=== PATIENT | male | born 1955 | race Caucasian/White ===

== ENCOUNTER 2022-09-30 14:08 | Inpatient (IN) | payer MEDICARE ==
[~2022-09-30] VITALS: Ht 177.8 cm; Wt 111.6 kg
[2022-09-30] MEDS ORDERED: SODIUM CHLORIDE 0.9% 1000ML 1,000 ML IV STA (14:44)
[2022-09-30] MEDS ORDERED: Vancomycin IV 1 GM in SODIUM CHLORIDE 0.9% 250ML 250 ML IV ONE (14:45)
[2022-09-30 14:51] LABS: BASOPHILS % 0.3 % (0.0-1.0); EOSINOPHILS # (AUTO) 0.1 (0.0-0.4); EOSINOPHILS % 0.4 % (0.0-6.0); HEMATOCRIT 39.7 % (38.2-49.6); HEMOGLOBIN 13.1 g/dL (14.0-18.0); LYMPHOCYTES # (AUTO) 1.1 (1.0-3.2); LYMPHOCYTES % 8.3 % (18.0-39.1); MEAN CORPUSCULAR HEMOGLOBIN 31.6 pg (28-32); MEAN CORPUSCULAR VOLUME 95.7 fL (81-99); MONOCYTES # (AUTO) 1.1 (0.2-0.8); MONOCYTES % 7.9 % (4.4-11.3); NEUTROPHILS % 82.6 % (38.7-80.0); PLATELET COUNT 331 x10e3/uL (140-360); RED BLOOD COUNT 4.15 x10e6/uL (4.3-5.7); RED CELL DISTRIBUTION WIDTH 12.7 % (11.7-14.4)
[2022-09-30 14:59] LABS: INR 1.94; PROTHROMBIN TIME 23.7 seconds (11.9-14.5)
[2022-09-30 15:00] LABS: PARTIAL THROMBOPLASTIN TIME 52.8 seconds (23.8-35.5)
[2022-09-30] MEDS ORDERED: SODIUM CHLORIDE 0.9% 1000ML 1,000 ML ONE (15:00)
[2022-09-30 15:07] LABS: ALBUMIN 3.4 g/dL (3.5-5.0); ALBUMIN/GLOBULIN RATIO 0.8 (0.8-2.0); ANION GAP 13.9 mmol/L (8-16); CALCIUM 9.3 mg/dL (8.4-10.2); CREATININE, SERUM 1.19 mg/dL (0.72-1.25); POTASSIUM 3.9 mmol/L (3.5-5.1)
[2022-09-30 15:14] LABS: CREATINE KINASE MB 1.2 ng/mL (0-5.0)
[2022-09-30] MEDS ORDERED: ONDANSETRON HCL INJ 2MG/ML 2ML 2 MG/ML VIAL IV PRN (15:45)
[2022-09-30] MEDS ORDERED: Morphine 4mg INJECTION 4 MG/ML INJ IV PRN (15:45)
[2022-09-30] MEDS ORDERED: DEXTROSE 50% SYRINGE 50 ML IV PRN (15:45)
[2022-09-30] MEDS: FAMOTIDINE 20 MG/2 ML VIAL IV SCH ×2 (16:24→22:15)
[2022-09-30] MEDS ORDERED: ACETAMINOPHEN 325 MG TAB PO ONE (16:30)
[2022-09-30] MEDS: INSULIN LISPRO 100 UNIT/1 ML 3ML VIAL SQ SCH ×2 (16:30→21:00)
[2022-09-30 16:51] VITALS: BP 145/76
[2022-09-30 17:44] VITALS: BP 145/76
[2022-09-30 17:46] VITALS: BP 145/76
[2022-09-30] MEDS ORDERED: HYDROCHLOROTHIA25 MG PO (18:38)
[2022-09-30] MEDS ORDERED: FENOFIBRATE160 MG PO (18:38)
[2022-09-30] MEDS ORDERED: GABAPENTIN300 MG PO (18:38)
[2022-09-30] MEDS ORDERED: WARFARIN SODIUM5 MG PO ×2 (18:38)
[2022-09-30] MEDS ORDERED: ZETIA10 MG PO (18:38)
[2022-09-30] MEDS ORDERED: AMBIEN10 MG PO (18:38)
[2022-09-30] MEDS ORDERED: LOSARTAN POTASS25 MG PO (18:38)
[2022-09-30] MEDS ORDERED: AMLODIPINE BESY10 MG PO (18:38)
[2022-09-30] MEDS ORDERED: METFORMIN HCL500 M1 PO (18:38)
[2022-09-30] MEDS: WARFARIN SOD 3 MG TAB PO SCH (19:26)
[2022-09-30] MEDS: WARFARIN SOD 5 MG TAB PO SCH (19:26)
[2022-09-30 20:24] VITALS: BP 116/68
[2022-09-30 21:00] VITALS: BP 116/68
[2022-09-30] MEDS ORDERED: METFORMIN HCL 500 MG TAB CR PO SCH (21:00)
[2022-09-30] MEDS: GABAPENTIN 300 MG CAP PO SCH (21:39)
[2022-09-30] MEDS: ZOLPIDEM TARTRATE 10 MG TAB PO PRN (22:58)
[2022-09-30] MEDS ORDERED: ACETAMINOPHEN 325 MG TAB PO PRN (23:00)
[2022-10-01] VITALS (10 sets, daily range): BP systolic 123–148; BP diastolic 50–89
[2022-10-01] MEDS: Vancomycin IV 1 GM in SODIUM CHLORIDE 0.9% 250ML 250 ML IV SCH ×3 (03:58→17:52)
[2022-10-01 05:49] LABS: BASOPHILS # (AUTO) 0.1 (0.0-0.1); BASOPHILS % 0.5 % (0.0-1.0); EOSINOPHILS # (AUTO) 0.2 (0.0-0.4); EOSINOPHILS % 1.2 % (0.0-6.0); HEMOGLOBIN 12.1 g/dL (14.0-18.0); LYMPHOCYTES # (AUTO) 1.2 (1.0-3.2); LYMPHOCYTES % 9.2 % (18.0-39.1); MEAN CORPUSCULAR HGB CONC 33.6 g/dL (31-35); MEAN CORPUSCULAR VOLUME 95.2 fL (81-99); MONOCYTES # (AUTO) 1.1 (0.2-0.8); MONOCYTES % 8.6 % (4.4-11.3); NEUTROPHILS # (AUTO) 10.4 (2.1-6.9); NEUTROPHILS % 80.3 % (38.7-80.0); PLATELET COUNT 328 x10e3/uL (140-360); RED BLOOD COUNT 3.78 x10e6/uL (4.3-5.7); RED CELL DISTRIBUTION WIDTH 12.6 % (11.7-14.4)
[2022-10-01 06:30] LABS: ALBUMIN/GLOBULIN RATIO 0.8 (0.8-2.0); ANION GAP 13.8 mmol/L (8-16); CALCIUM 8.9 mg/dL (8.4-10.2); CHOL/HDL RATIO 5.3 (3.9-4.7); CREATININE, SERUM 1.13 mg/dL (0.72-1.25); POTASSIUM 3.8 mmol/L (3.5-5.1)
[2022-10-01 06:57] LABS: CREATINE KINASE MB 0.7 ng/mL (0-5.0)
[2022-10-01] MEDS ORDERED: WARFARIN SOD 5 MG TAB PO SCH ×2 (09:00→17:00)
[2022-10-01] MEDS: FENOFIBRATE 160 MG PO SCH (09:00)
[2022-10-01] MEDS: HYDROCHLOROTHIAZIDE 25 MG TAB PO SCH (11:00)
[2022-10-01] MEDS: AMLODIPINE BESYLATE 10 MG TAB PO SCH (11:00)
[2022-10-01] MEDS: LOSARTAN POTASSIUM 25 MG TAB PO SCH (11:00)
[2022-10-01] MEDS: EZETIMIBE 10 MG TAB PO SCH (11:01)
[2022-10-01] MEDS: INSULIN LISPRO 100 UNIT/1 ML 3ML VIAL SQ SCH ×4 (11:30→22:37)
[2022-10-01] MEDS: FAMOTIDINE 20 MG/2 ML VIAL IV SCH ×2 (11:34→20:56)
[2022-10-01 14:54] LABS: CREATINE KINASE MB 0.9 ng/mL (0-5.0)
[2022-10-01] MEDS: WARFARIN SOD 2 MG TAB PO SCH (17:14)
[2022-10-01] MEDS: WARFARIN SOD 5 MG TAB PO SCH (17:14)
[2022-10-01] MEDS: GABAPENTIN 300 MG CAP PO SCH (20:56)
[2022-10-01] MEDS: ZOLPIDEM TARTRATE 10 MG TAB PO PRN (20:57)
[2022-10-02] VITALS (10 sets, daily range): BP systolic 125–145; BP diastolic 67–89
[2022-10-02 06:00] LABS: BASOPHILS # (AUTO) 0.1 (0.0-0.1); BASOPHILS % 0.6 % (0.0-1.0); EOSINOPHILS # (AUTO) 0.3 (0.0-0.4); EOSINOPHILS % 2.4 % (0.0-6.0); HEMOGLOBIN 12.3 g/dL (14.0-18.0); LYMPHOCYTES # (AUTO) 1.7 (1.0-3.2); LYMPHOCYTES % 14.6 % (18.0-39.1); MEAN CORPUSCULAR HEMOGLOBIN 31.4 pg (28-32); MEAN CORPUSCULAR HGB CONC 34.2 g/dL (31-35); MEAN CORPUSCULAR VOLUME 91.8 fL (81-99); MONOCYTES # (AUTO) 1.3 (0.2-0.8); MONOCYTES % 11.1 % (4.4-11.3); NEUTROPHILS % 70.6 % (38.7-80.0); PLATELET COUNT 356 x10e3/uL (140-360); RED BLOOD COUNT 3.92 x10e6/uL (4.3-5.7)
[2022-10-02 06:27] LABS: CALCIUM 9.5 mg/dL (8.4-10.2); CREATININE, SERUM 1.36 mg/dL (0.72-1.25)
[2022-10-02] MEDS: Vancomycin IV 1 GM in SODIUM CHLORIDE 0.9% 250ML 250 ML IV SCH ×2 (07:08→17:43)
[2022-10-02] MEDS: AMLODIPINE BESYLATE 10 MG TAB PO SCH (08:50)
[2022-10-02] MEDS: EZETIMIBE 10 MG TAB PO SCH (08:50)
[2022-10-02] MEDS: HYDROCHLOROTHIAZIDE 25 MG TAB PO SCH (08:51)
[2022-10-02] MEDS: FAMOTIDINE 20 MG/2 ML VIAL IV SCH ×2 (08:51→20:02)
[2022-10-02] MEDS: LOSARTAN POTASSIUM 25 MG TAB PO SCH (08:51)
[2022-10-02] MEDS: FENOFIBRATE 160 MG PO SCH (09:00)
[2022-10-02] MEDS: INSULIN LISPRO 100 UNIT/1 ML 3ML VIAL SQ SCH ×4 (09:13→22:21)
[2022-10-02 11:54] LABS: INR 1.91; PROTHROMBIN TIME 23.4 seconds (11.9-14.5)
[2022-10-02] MEDS: WARFARIN SOD 5 MG TAB PO SCH (19:12)
[2022-10-02] MEDS: WARFARIN SOD 3 MG TAB PO SCH (19:12)
[2022-10-02] MEDS: GABAPENTIN 300 MG CAP PO SCH (20:02)
[2022-10-02] MEDS: ZOLPIDEM TARTRATE 10 MG TAB PO PRN (22:22)
[2022-10-03] VITALS (7 sets, daily range): BP systolic 111–132; BP diastolic 69–80
[2022-10-03] MEDS: Vancomycin IV 1 GM in SODIUM CHLORIDE 0.9% 250ML 250 ML IV SCH ×2 (04:54→17:40)
[2022-10-03 06:03] LABS: BASOPHILS # (AUTO) 0.1 (0.0-0.1); BASOPHILS % 0.9 % (0.0-1.0); EOSINOPHILS # (AUTO) 0.4 (0.0-0.4); EOSINOPHILS % 3.8 % (0.0-6.0); HEMATOCRIT 35.4 % (38.2-49.6); HEMOGLOBIN 11.9 g/dL (14.0-18.0); LYMPHOCYTES # (AUTO) 1.8 (1.0-3.2); LYMPHOCYTES % 17.4 % (18.0-39.1); MEAN CORPUSCULAR HEMOGLOBIN 30.7 pg (28-32); MEAN CORPUSCULAR HGB CONC 33.6 g/dL (31-35); MEAN CORPUSCULAR VOLUME 91.5 fL (81-99); MONOCYTES # (AUTO) 1.1 (0.2-0.8); MONOCYTES % 10.6 % (4.4-11.3); NEUTROPHILS # (AUTO) 6.9 (2.1-6.9); NEUTROPHILS % 66.2 % (38.7-80.0); PLATELET COUNT 381 x10e3/uL (140-360); RED BLOOD COUNT 3.87 x10e6/uL (4.3-5.7); RED CELL DISTRIBUTION WIDTH 12.9 % (11.7-14.4)
[2022-10-03 06:31] LABS: ANION GAP 13.9 mmol/L (8-16); CREATININE, SERUM 1.27 mg/dL (0.72-1.25); POTASSIUM 3.9 mmol/L (3.5-5.1)
[2022-10-03] MEDS: FENOFIBRATE 160 MG PO SCH (09:00)
[2022-10-03] MEDS: INSULIN LISPRO 100 UNIT/1 ML 3ML VIAL SQ SCH ×4 (09:40→23:22)
[2022-10-03] MEDS: FAMOTIDINE 20 MG/2 ML VIAL IV SCH (09:49)
[2022-10-03] MEDS: AMLODIPINE BESYLATE 10 MG TAB PO SCH (09:50)
[2022-10-03] MEDS: LOSARTAN POTASSIUM 25 MG TAB PO SCH (09:50)
[2022-10-03] MEDS: HYDROCHLOROTHIAZIDE 25 MG TAB PO SCH (09:50)
[2022-10-03] MEDS: EZETIMIBE 10 MG TAB PO SCH (09:50)
[2022-10-03] MEDS ORDERED: ONDANSETRON HCL 4 MG ORAL DISINTEGRATING TAB PO PRN (14:45)
[2022-10-03] MEDS: WARFARIN SOD 2 MG TAB PO SCH (17:40)
[2022-10-03] MEDS: WARFARIN SOD 5 MG TAB PO SCH (17:40)
[2022-10-03] MEDS: FAMOTIDINE 20 MG TAB PO SCH (21:20)
[2022-10-03] MEDS: GABAPENTIN 300 MG CAP PO SCH (21:20)
[2022-10-03] MEDS: ZOLPIDEM TARTRATE 10 MG TAB PO PRN (21:26)
[2022-10-04] VITALS: BP 130/82
[2022-10-04 04:00] VITALS: BP 118/81
[2022-10-04] MEDS: Vancomycin IV 1 GM in SODIUM CHLORIDE 0.9% 250ML 250 ML IV SCH (06:05)
[2022-10-04 08:14] VITALS: BP 128/74
[2022-10-04] MEDS: EZETIMIBE 10 MG TAB PO SCH (10:15)
[2022-10-04] MEDS: HYDROCHLOROTHIAZIDE 25 MG TAB PO SCH (10:15)
[2022-10-04] MEDS: FAMOTIDINE 20 MG TAB PO SCH (10:15)
[2022-10-04] MEDS: LOSARTAN POTASSIUM 25 MG TAB PO SCH (10:16)
[2022-10-04] MEDS: AMLODIPINE BESYLATE 10 MG TAB PO SCH (10:16)
[2022-10-04] MEDS: FENOFIBRATE 160 MG PO SCH (10:17)
[2022-10-04] MEDS: INSULIN LISPRO 100 UNIT/1 ML 3ML VIAL SQ SCH ×2 (10:23→11:30)
[2022-10-04 11:43] VITALS: BP 133/75
[2022-10-04 15:31] VITALS: BP 125/65
[2022-10-04] MEDS ORDERED: KEFLEX125 MG/5 M PO (16:33)
== END 2022-10-04 18:22 | disposition home or self-care (01) | DRG 638 ==
LOC: ER 14:13 → ERHOLD 15:44 → MED/SURG2 16:49
PROVIDERS: ADMIT Internal Medicine; ATTEND Internal Medicine
PROC: 0J9Q0ZZ Drainage of Right Foot Subcutaneous Tissue and Fascia, Open Approach (ICD-10-PCS; principal; 2022-10-02)
DX: E11.621 Type 2 diabetes mellitus with foot ulcer (principal); L02.611 Cutaneous abscess of right foot; L03.115 Cellulitis of right lower limb; L97.411 Non-pressure chronic ulcer of right heel and midfoot limited to breakdown of skin; N17.9 Acute kidney failure, unspecified; I10 Essential (primary) hypertension; E66.9 Obesity, unspecified; E11.42 Type 2 diabetes mellitus with diabetic polyneuropathy; Z68.35 Body mass index [BMI] 35.0-35.9, adult; B95.62 Methicillin resistant Staphylococcus aureus infection as the cause of diseases classified elsewhere; I35.8 Other nonrheumatic aortic valve disorders; Z85.46 Personal history of malignant neoplasm of prostate; Z95.2 Presence of prosthetic heart valve; Z20.822 Contact with and (suspected) exposure to COVID-19
CPT/HCPCS: 36415; 71045; 80048; 80053; 80061; 80202; 82550; 82553; 82948; 83036; 83605; 83735; 84484; 85025; 85610; 85730; 87040; 87071; 87186; 87205; 93005; 94799; 96372; 99251; 99284; J2270; J2543; J3370; J7030; J7050